=== PATIENT | female | born 1995 | race Caucasian/White ===

== ENCOUNTER 2024-02-26 12:47 | Emergency (ER) | payer OTHER ==
[2024-02-26 13:06] VITALS: BP 115/63; O2SAT 99
[2024-02-26 13:46] LABS: BASOPHILS % (AUTO) 0.1 %; EOSINOPHILS % (AUTO) 0.2 %; HCT - HEMATOCRIT 37.8 % (37.0-47.0); HGB - HEMOGLOBIN 13.1 g/dL (12.0-16.0); LYMPHOCYTES # (AUTO) 0.6 10^3/uL (1.5-3.5); LYMPHOCYTES % (AUTO) 5.3 %; MEAN CORPUSCULAR HEMOGLOBIN 30.3 pg (27.0-31.0); MEAN CORPUSCULAR HGB CONC 34.7 g/dL (32.0-36.0); MEAN CORPUSCULAR VOLUME 87.3 fL (81.0-99.0); MEAN PLATELET VOLUME 10.8 fL (7.9-10.8); MONOCYTES # (AUTO) 0.7 10^3/uL (0.0-1.0); MONOCYTES % (AUTO) 6.6 %; NEUTROPHILS % (AUTO) 87.3 %; PLT - PLATELET COUNT 209 10^3/uL (130-450); RED BLOOD COUNT 4.33 10^6/uL (4.20-5.40); RED CELL DISTRIBUTION WIDTH 13.5 % (12.0-15.0); WHITE BLOOD COUNT 10.3 x10^3/uL (4.8-10.8)
[2024-02-26 13:59] LABS: ALBUMIN 4.2 g/dL (3.2-5.5); ALBUMIN/GLOBULIN RATIO 1.8 (1.0-2.2); BILIRUBIN,TOTAL 0.6 mg/dL (0.2-1.0); CALCIUM 9.3 mg/dL (8.5-10.3); CREATININE 0.6 mg/dL (0.6-1.3); POTASSIUM 3.6 mmol/L (3.5-4.5); TOTAL PROTEIN 6.5 g/dL (6.4-8.9)
--- NOTE | 2024-02-26 15:16 | ED Physician Documentation ---
PD HPI NVD - Stated complaint Stated Complaint: N/V/D, ABD PX - Chief complaint Chief Complaint: Abd Pain - History obtained from History obtained from: Patient - History of Present Illness Timing - onset: Yesterday Timing - duration: Days (2) Timing - details: Gradual onset, Intermittant Pain level max: 1 Pain level now: 0 Associated symptoms: No: Fever Contributing factors: Sick contact. No: Recent antibiotics, Alcohol use Recently seen: Not recently seen - Additonal information Additional information: 28-year-old female 17 weeks . She states that she had an episode of nausea and vomiting yesterday. 2 episodes of diarrhea today 3 episodes of diarrhea yesterday. Concerned about dehydration. No fevers. No chills. No blood in the stool. Occasionally has cramping in her abdomen. No vaginal bleeding or discharge. No recent travel or antibiotics. Has been around other people who are sick as well. Review of Systems Constitutional: denies: Fever, Chills GI: denies: Bloody / black stool : reports: Now DESIRE (17 weeks). denies: Dysuria, Frequency, Hesitancy, Discharge, Vaginal bleeding Skin: denies: Rash Musculoskeletal: denies: Neck pain, Back pain Neurologic: denies: Headache PD PAST MEDICAL HISTORY - Past Medical History Past Medical History: No Other Past Medical History: ASD - Past Surgical History Past Surgical History: Yes Ortho: Other HEENT: Other - Allergies Allergies/Adverse Reactions: Allergies Allergy/AdvReac Type Severity Reaction Status Date / Time amoxicillin Allergy Hives Verified 02/26/24 13:02 - Social History Does the pt smoke?: No Smoking Status: Never smoker Does the pt drink ETOH?: No Does the pt have substance abuse?: No - Immunizations Immunizations are current?: Yes PD ED PE NORMAL - Vitals Vital signs reviewed: Yes - General General: Alert and oriented X 3, No acute distress - HEENT HEENT: PERRL, Moist mucous membranes - Neck Neck: Supple, no meningeal sign - Cardiac Cardiac: RRR, Strong equal pulses - Respiratory Respiratory: No respiratory distress, Clear bilaterally - Abdomen Abdomen: Soft, Non tender, Non distended - Back Back: No CVA TTP - Derm Derm: Warm and dry - Extremities Extremities: No edema - Neuro Neuro: Alert and oriented X 3 - Psych Psych: Normal mood, Normal affect Results - Vitals Vitals: Vital Signs - 24 hr 02/26/24 13:02 Temperature 36.7 C Heart Rate 110 H Respiratory 16 Rate Blood Pressure 115/63 O2 Saturation 99 - Labs Labs: Laboratory Tests 02/26/24 02/26/24 02/26/24 13:42 13:42 16:40 WBC 10.3 RBC 4.33 Hgb 13.1 Hct 37.8 MCV 87.3 MCH 30.3 MCHC 34.7 RDW 13.5 Plt Count 209 MPV 10.8 Neut # (Auto) 9.0 H Lymph # (Auto) 0.6 L Beaver # (Auto) 0.7 Eos # (Auto) 0.0 Baso # (Auto) 0.0 Absolute Nucleated RBC 0.00 Nucleated RBC % 0.0 Sodium 135 Potassium 3.6 Chloride 103 Carbon Dioxide 24 Anion Gap 8.0 BUN 7 Creatinine 0.6 Estimated GFR (MDRD) 117 Glucose 96 Calcium 9.3 Total Bilirubin 0.6 AST 20 ALT 23 Alkaline Phosphatase 48 Total Protein 6.5 Albumin 4.2 Globulin 2.3 Albumin/Globulin Ratio 1.8 Lipase 35 Urine Color YELLOW Urine Clarity HAZY Urine pH 6.0 Ur Specific [place] 1.025 Urine Protein NEGATIVE Urine Glucose (UA) NEGATIVE Urine Ketones 15 H Urine Occult Blood NEGATIVE Urine Nitrite NEGATIVE Urine Bilirubin NEGATIVE Urine Urobilinogen 0.2 (NORMAL) Ur Leukocyte Esterase SMALL H Urine RBC 0-5 Urine WBC 6-10 H Ur Squamous Epith Cells MANY Squamous H Urine Bacteria Many H Ur Microscopic Review INDICATED Urine Culture Comments NOT INDICATED PD Medical Decision Making - ED course Complexity details: reviewed results, re-evaluated patient, considered differential, d/w patient ED course: Patient is very well-appearing, nontoxic. Afebrile. Tolerating p.o. without difficulty here. No significant lab abnormalities. Urinalysis appears contaminated. Bedside ultrasound reveals an intrauterine , size consistent with dates. heart rate approximately 142 bpm. Images were shown to the patient. No diarrhea here. No vomiting here. Likely viral gastroenteritis. We will continue supportive care and have her follow-up with her doctor for further care. Abdomen remains soft, nontender nondistended on serial exam. Patient counseled regarding signs and symptoms for which I believe and urgent re-evaluation would be necessary. Patient with good understanding of and agreement to plan and is comfortable going home at this time This document was made in part using voice recognition software. While efforts are made to proofread this document, sound alike and grammatical errors may occur. Departure - Departure Disposition: 01 Home, Self Care Clinical Impression: Diarrhea Qualifiers: Diarrhea type: unspecified type Qualified Code(s): R19.7 - Diarrhea, uns pecified Condition: Good Instructions: ED Diarrhea Viral Follow-Up: Fransisca Esparza CNM, FILM DRYING MACHINE OPERATOR [Primary Care Provider] - Within 1 week Comments: Please follow-up with your OB for further care. Please return if you worsen. Make sure you are drinking plenty of fluids at home. Forms: PCP List Discharge Date/Time: 02/26/24 17:43
[2024-02-26] MEDS: SODIUM CHLORIDE 0.9% 1,000 ML IV STA (15:40)
[2024-02-26 16:56] LABS: BILIRUBIN,URINE NEGATIVE (NEGATIVE); GLUCOSE, URINE (UA) NEGATIVE (NEGATIVE); KETONES,URINE (UA) 15 mg/dL (NEGATIVE); LEUKOCYTE ESTERASE, URINE SMALL (NEGATIVE); NITRITE,URINE NEGATIVE (NEGATIVE); OCCULT BLOOD,URINE NEGATIVE (NEGATIVE); PROTEIN,URINE NEGATIVE (NEGATIVE); UROBILINOGEN,URINE 0.2 (NORMAL) E.U./dL (NORMAL)
[2024-02-26 16:57] LABS: CLARITY,URINE HAZY (CLEAR)
[2024-02-26 17:16] LABS: BACTERIA,URINE Many /HPF (None Seen); RBC,URINE 0-5 /HPF (0-5); SQUAMOUS EPITHELIAL CELL,UR MANY Squamous (<= Few)
== END 2024-02-26 17:43 | disposition home or self-care (01) ==
LOC: ED 12:47
DX: O26.892 Other specified pregnancy related conditions, second trimester (principal); R19.7 Diarrhea, unspecified; O21.9 Vomiting of pregnancy, unspecified; Z3A.17 17 weeks gestation of pregnancy
CPT/HCPCS: 36415; 80053; 81001; 81003; 83690; 85025; 87086; 99283

== ENCOUNTER 2024-03-19 10:39 | Outpatient (CLI) | payer OTHER ==
--- NOTE | 2024-03-19 13:52 | Ultrasound Report ---
PROCEDURE: OB Anatomy Scan INDICATIONS: SUPERVISION OF OUTSIDE/PRIOR DATING DATA: Last menstrual period (LMP): 10/25/2023. LMP-based estimated date of delivery (ANABEL): 10/01/2023. First dating scan (date and location): 03/19/2024. Estimated date of delivery (ANABEL) from first dating scan: 07/30/2024. The below data below was generated using the ultrasound ANABEL of 07/30/2024 TECHNIQUE: Real-time scanning was performed of the fetus, with image documentation and biometric measurements. Endovaginal scanning: Not performed. COMPARISON: None. FINDINGS: General: A single living intrauterine gestation is present. Presentation: Variable Placenta: Placental position is posterior, without previa. Amniotic fluid index: 10.7 cm, within normal limits for gestational age. heart rate: 153 beats per minute. Maternal cervical canal: 5.7 cm long; normal length is 2.5 cm or more. biometrics: Biparietal diameter: 4.5 cm, 19 weeks 4 days, 5.9 percentile Head circumference: 17.7 cm, 20 weeks 2 days, 11.9 percentile Abdominal circumference: 16.9 cm, 22 weeks 0 days, 74.5 percentile Femur length: 3.62 cm, 31 weeks 3 days, 58.3 cm Estimated gestational age from initial scan: 20 weeks 0 days Composite gestational age from present scan: 20 weeks 6 days Estimated weight and percentile: 429.2 g, 72.5 percentile Measurement variability in biometric dating: +/- 10 days from 12-20 weeks gestation, +/- 2 weeks from 20-30 weeks gestation, +/- 3 weeks at 30 weeks gestation or later. Anatomic survey: Neuro: Ventricles are normal at less than 10 mm. Cisterna magna is normal at 3-11 mm. Cerebellum i s normal in size and morphology. Nuchal skin fold: Normal at less than 6 mm between 14 and 20 weeks gestational age. Face: Nose and lips, facial profile are normal. Spine: No evidence for spina bifida. Heart: 4-chambered heart is present, with normal ventricular outflow tracts. Diaphragm: Diaphragm is intact. Stomach: Left-sided stomach is present. Kidneys: The right renal collecting system measures 4.6 mm. The left renal collecting system measures 4.2 mm. Cord: 3 vessel cord has orthotopic insertion. Bladder: Normal in size. Extremities: All 4 extremities are visualized. IMPRESSION: Single living intrauterine at 21 weeks 0 days, ANABEL of 07/30/2024. Estimated weight of 429 g, 72nd percentile. Mild bilateral pelvocaliectasis without oligohydramnios. Consider follow-up at 30-33 weeks, or at pro vider's discretion. Reviewed by: Juan Manuel Morales MD on 03/19/2024 1:51 PM PDT Approved by: Juan Manuel Morales MD on 03/19/2024 1:51 PM PDT Station ID: [id number]
== END 2024-03-19 10:40 | disposition home or self-care (01) ==
LOC: DI 10:39
PROVIDERS: ATTEND Nurse Practitioner Obstetrics & Gynecology
DX: O35.EXX0 Maternal care for other (suspected) fetal abnormality and damage, fetal genitourinary anomalies, not applicable or unspecified (principal); Z3A.21 21 weeks gestation of pregnancy; Z36.89 Encounter for other specified antenatal screening

== ENCOUNTER 2024-05-07 11:47 | Outpatient (CLI) | payer OTHER ==
[2024-05-07 13:10] LABS: HCT - HEMATOCRIT 35.6 % (37.0-47.0); HGB - HEMOGLOBIN 12.5 g/dL (12.0-16.0); MEAN CORPUSCULAR HEMOGLOBIN 30.9 pg (27.0-31.0); MEAN CORPUSCULAR HGB CONC 35.1 g/dL (32.0-36.0); MEAN CORPUSCULAR VOLUME 87.9 fL (81.0-99.0); MEAN PLATELET VOLUME 11.2 fL (7.9-10.8); RED BLOOD COUNT 4.05 10^6/uL (4.20-5.40); RED CELL DISTRIBUTION WIDTH 13.7 % (12.0-15.0); WHITE BLOOD COUNT 11.6 x10^3/uL (4.8-10.8)
== END 2024-05-07 11:48 | disposition home or self-care (01) ==
LOC: LAB 11:47
PROVIDERS: ATTEND Nurse Practitioner Obstetrics & Gynecology
DX: Z36.9 Encounter for antenatal screening, unspecified (principal)
CPT/HCPCS: 36415; 82950; 85027

== ENCOUNTER 2024-07-24 06:06 | Inpatient (IN) ==
[2024-07-24] MEDS ORDERED: LACTATED RINGERS 1,000 ML IV PRN (07:08)
[2024-07-24] MEDS ORDERED: NIFEdipine 10 MG CAPSULE PO PRN (07:08)
[2024-07-24] MEDS ORDERED: miSOPROStoL 200 MCG TABLET BC PRN (07:08)
[2024-07-24] MEDS ORDERED: fentaNYL 100 MCG/2 ML VIAL IVP PRN (07:08)
[2024-07-24] MEDS ORDERED: LABETALOL 20 MG/4 ML SYRINGE IVP PRN ×3 (07:08)
[2024-07-24] MEDS ORDERED: TRANEXAMIC ACID IN NACL 1,000 MG/100 ML BAG IV PRN (07:08)
[2024-07-24] MEDS ORDERED: hydrALAZINE INJ 20 MG/ML VIAL IVP PRN (07:08)
[2024-07-24] MEDS ORDERED: METHYLERGONOVINE 0.2 MG/ML VIAL IM PRN (07:08)
[2024-07-24] MEDS ORDERED: OXYTOCIN 10 UNIT/ML VIAL IM PRN (07:08)
[2024-07-24] MEDS ORDERED: miSOPROStoL 200 MCG TABLET PR PRN (07:08)
[2024-07-24] MEDS ORDERED: SODIUM CHLORIDE FLUSH 0.9% 10 ML SYRINGE IVP PRN (07:08)
[2024-07-24] MEDS ORDERED: lidocaine 1% 20 ML MDV ID PRN (07:08)
[2024-07-24] MEDS ORDERED: TERBUTALINE 1 MG/ML VIAL SUBQ PRN (07:08)
[2024-07-24] MEDS: miSOPROStoL 100 MCG TABLET BC SCH (07:25)
--- NOTE | 2024-07-24 10:32 | HISTORY & PHYSICAL EXAMINATION ---
Admit History Visit Reason Visit Reason: Other : 2 Parity: 1 Care: positive [facility] Risk/History: positive None Complications This : positive None Smoking Status: Never smoker HPI Current : Vital Signs Respiratory Rate 18 07/24/24 06:10 Respiratory Rate 18 07/24/24 06:10 Meds/Allgy Home Medications Ambulatory Orders Medication Instructions Recorded Confirmed vitamins no.159-iron tab PO 06/18/24 07/17/24 fumarate 28 mg-folic acid 800 mcg tablet ( Vitamin) Allergies Allergies Allergy/AdvReac Type Severity Reaction Status Date / Time amoxicillin Allergy Hives Verified 07/09/24 13:48 [facility] Surgical History Surgical History (Updated 06/18/24 @ 10:31 by Shabana Taylor MA) H/O sinus surgery Social History Social History (Updated 06/18/24 @ 10:32 by Shabana Taylor MA) Smoking Status: Never smoker Do you dip or chew tobacco?: No Do you feel safe in your home environment?: Yes Suffered physical, verbal, emotional, or financial abuse?: No Physical Abdominal Exam Vital Signs: Resp 18 07/24/24 06:10 Plan for Labor Plan For Labor I expect patient to be DC'd or transferred within 96 hours.: Yes Plan for Labor: HPI: This 29yo @ 39.0wks gestation by LMP c/w 8.0wks gestation who presents to [facility] for elective IOL. Upon arrival SVE was deferred however yesterday evening in [facility] triage SVE was 1/50/-3 and vertex and intact membranes. FHR baseline 140s, moderate variability, + accels, no decels. No contractions appreciated via tocometry. She had mildly elevated blood pressure in triage last evening and she requested IOL secondarily. She denies CHAPPELL, visual disturbances, RUQ or epigastric pain. She has not felt contractions and reports +FM. She has been a patient of [facility] since her transfer of care from [facility] at 29wks gestation. She has had consistent care and her has remained uncomplicated. She is supported by her today. She will be admitted to [facility] for pre-induction cervical ripening. 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 SAB x 0. Last pap - unsure. Denies hx of gonorrhea, chlamydia, genital herpes, oral herpes or any other STI. Sexual partner does NOT have HSV (oral or genital). Medical Hx: congenital heart defect/atrial septal defect - Cardiology referral in last was WNL. Surgical Hx: Left hand surgery 1997; atrial septal defect repair - 2012; naso septoplasty 09/2022 Social Hx: Monogamous with male partner. Stopped drinking alochol due to . Denies current tobacco or nicotine use. Denies marijuana or other recreational drugs. Reports she is safe in current relationship. Family Hx: Son was born with epispadias that required surgical correction; diabetes - MGM; epilepsy/seizures - brother; HTN, Heart disease - MGF; Breast cancer - PGM; Prostate cancer - PGF; Anxiety/depression -Brother; Autism - brother. Denies family hx of congential anomalies, cystic fibrosis or chromosomal abnormalities. Allergies: Amoxicillin - hives Medications: PNV, Claritin once daily PO course: LMP: 10/25/2023 ANABEL by LMP: 07/31/2024 Initial U/S: @ 8.0wks c/w LMP dating FINAL ANABEL: 07/31/2024 Atrial Septal Defect with repair in 2012. Cardiology referral WNL Pre- Weight: 205 BMI: 34.5 Blood type B+ Antibody neg CBC: PLT 312 HCT 40.6 HGB 13.6 RUB: immune VZV: immune HBsAg: NR HepC: NR RPR/AB-EIA: NR HIV: NR HgbA1C: 5.1 PAP: needs GC/CT: neg HSV: denies in self and partner Genetic testing: neg Covid: x2 Flu: 05/18 FAS: 03/19/24- bilateral pelviectasis without oligohydramnios. F/u @ 32-34wks Placenta: posterior w/o previa Cord: 3vc SHANE:10.7cm wnl EFW: 429.2g 72.5% 50gm OGCT: TDAP:05/18 Breast Pump: Rx given RSV 06/18/2024 3rd trimester H/H 12.5/35.6 PLT 227 GBS:collected 07/09- PCN allergy POSITIVE Delivery plan: Open minded and "wait and see" approach to labor and delivery processes. States she will likely get an epidural. Okay with all baby meds. Desires - struggled last baby. MOD: Anticipate Physical exam: Normocephalic, atraumatic Heart RRR w/o M/G/R Lungs CTAB Abdomen gravid, soft, nontender FHR baseline 140s, moderate variability, + accels, no decels No contractions appreciated via tocometry SVE deferred Bilateral LE's trace edema. Mood is good Assessment: 29yo @ 39.0wks gestation by LMP c/w 8.0wk U/S GBS POSITIVE FHR Category I Plan: Admit to [facility] for pre-induction cervical ripening with misoprostol. Continuous monitoring. Jacuzzi PRN. Nitrous oxide PRN. Epidural per maternal request. Anticipate .
[2024-07-24] MEDS: ceFAZolin (2G) 2 GM in SODIUM CHLORIDE 0.9% MINIBAG 100 ML IV ONE (11:24)
[2024-07-24] MEDS: ceFAZolin 1 GM in SODIUM CHLORIDE 0.9% MINIBAG 100 ML IV SCH (15:34)
--- NOTE | 2024-07-24 18:12 | PROVIDER PROGRESS NOTE ---
HPI Chief Complaint: Decreased movement Current : Vital Signs Respiratory Rate 18 07/24/24 06:10 Respiratory Rate 18 07/24/24 06:10 Procedures OB Procedure Performed: NST Diagnosis/Indication for NST: Decreased movement NST Procedure: NST reactive. FHR baseline 140s, moderate variability, + accels, no decels No contractions appreciated via tocometry Service Date of procedure: 07/23/24 Plan Plan: Sandra presents today with her with c/o decreased movement throughout the day today. She states she has felt some movements but not nearly as much as usual. She denies vaginal bleeding, leakage of fluid or contractions. She has eaten regularly and drank a sugary drink in attempt to wake her up but has been unable to successfully do so. Upon arrival BP initially mildly elevated. She denies CHAPPELL, visual disturbances, RUQ or epigastric pain. No edema to LE's bilaterally. NST reactive. FHR baseline 140s, moderate variablity, + accels, no decels No contractions appreciated via tocometry CMP WNL CBC WNL Pr/cr ratio 0.1 Pt released home with precautions. She desires elective IOL and [facility] is able to facilitate tomorrow morning. Carefully reviewed warning s/sx of preelcampsia with pt and she verbalized understanding and agrees to above plan. She denies further questions or concerns at this time. FINAL DIAGNOSIS: Decreased movement
--- NOTE | 2024-07-24 18:53 | PROVIDER PROGRESS NOTE ---
Labor Progress Note Labor Progress Note Labor Progress Note/Additional Text: S: Breathing through contractions but coping well. Starting to feel increasingly uncomfortable and particularly so after SROM which occurred 1 hr ago. She is requesting an epidural for pain management at this time. Her is suppor tive at the bedside. O: FHR baseline 150s, moderate variability, + accels, no decels Contractions palpate moderate every 2-3 minutes with soft resting tone SVE 1-2/50/-3, vertex SROM occurred at 1745 and noted to be a moderate amount of clear fluid S/p 3 doses of BC misoprostol for pre-induction cervical ripening A: 29yo @ 39.0wks gestation Induction of labor GBS positive FHR Category I P: Anesthesia notified for placement of epidural per pt request Continuous monitoring. Repeat SVE in 4 hours or sooner PRN. Discussed initiation of pitocin at that time as needed and pt agrees. She denies further questions or concerns at this time.
[2024-07-24] MEDS ORDERED: LIDOCAINE 2%-EPI 1:100000 20 ML MDV ONE (19:02)
[2024-07-24] MEDS ORDERED: ROPIVACAINE 0.2% 200 MG/100 ML BAG EP ONE (19:02)
[2024-07-24] MEDS ORDERED: lidocaine 1% 20 ML MDV ONE (19:30)
--- NOTE | 2024-07-24 20:24 | ANESTHESIA PROCEDURE NOTE ---
Pre-Anesthesia VS, & Labs Diagnosis Surgical Diagnosis:: 39 weeks for elective induction Procedure Procedure: placement of labor epidural Vitals Vital Signs: Resp 18 07/24/24 06:10 Height (in): 5 ft 4 in Weight (kg): 99 kg Body Mass Index: 37.4 BMI Classification: Obese NPO Last Fluid Intake: currently clears Is Patient ?: Yes Lab Results Current Lab Results: Laboratory Tests 07/24/24 08:52: Blood Type Recheck B POSITIVE 07/24/24 08:18: Blood Type B POSITIVE, Antibody Screen NEGATIVE Lab results reviewed: Yes Meds/Allgy Home Medications Ambulatory Orders Medication Instructions Recorded Confirmed vitamins no.159-iron tab PO 06/18/24 07/17/24 fumarate 28 mg-folic acid 800 mcg tablet ( Vitamin) Allergies Allergies Allergy/AdvReac Type Severity Reaction Status Date / Time amoxicillin Allergy Hives Verified 07/09/24 13:48 PFSH Surgical History Surgical History H/O sinus surgery Social History Social History Smoking Status: Never smoker Do you dip or chew tobacco?: No Do you feel safe in your home environment?: Yes Suffered physical, verbal, emotional, or financial abuse?: No POLST Patient has POLST: No Anesthesia Exam (Expanded) Exam General: Alert and Mild distress Dental: WNL Mouth Openin Fingerbreadth Neck Mobility: Normal Mallampati classification: II Thyromental Distance: 4-6 cm Respiratory: Lungs clear Cardiovascular: Regular rate (history of atrial septal defefect repair in 2012. No limitations in activity since then, tolerated labor epidural well with first child; she is normally very active, sees cardiology for routine follow ups, with no limitations) Plan Problem List (1) History of atrial septal defect repair: (2) Supervision of normal : Qualifiers: Normal : other normal Trimester: third trimester Qualified Code(s): Z34.83 - Encounter for supervision of other normal , third trimester Plan Anesthesia Type: Epidural Consent for Procedure(s) Verified and Reviewed: Yes Code Status: Attempt Resuscitation ASA Classification ASA classification: 2-Mild systemic disease Is this case an emergency?: No
[2024-07-24] MEDS ORDERED: ePHEDrine 50 MG/ML VIAL IVP PRN (20:29)
[2024-07-24] MEDS ORDERED: ROPIVACAINE 0.2% 200 MG/100 ML BAG EP PRN (20:29)
[2024-07-24] MEDS ORDERED: METOCLOPRAMIDE 10 MG/2 ML VIAL IVP PRN (20:29)
[2024-07-24] MEDS ORDERED: NALOXONE 0.4 MG/ML VIAL IVP PRN (20:29)
[2024-07-24] MEDS ORDERED: NALBUPHINE 10 MG/ML AMP IVP PRN (20:29)
[2024-07-24] MEDS ORDERED: ONDANSETRON 4 MG/2 ML VIAL IVP PRN (20:29)
[2024-07-24] MEDS ORDERED: LACTATED RINGERS 500 ML IV ONE (20:29)
[2024-07-24] MEDS ORDERED: diphenhydrAMINE INJ 50 MG/ML VIAL IVP PRN (20:29)
--- NOTE | 2024-07-24 20:35 | MISCELLANEOUS PROVIDER NOTE ---
Miscellaneous Provider Note - Note: Placement of the patients labor epidural was somewhat difficult due to positi oning and body habitus, on the first attempt with a 17 g tuohy at L2-3, , there was AMPARO about 6cm, with +csf through the needle;it was removed, and again attempted at L3-4, Amparo was at about 5 cm, -csf, -heme, -paresthesia, cath was easily threaded, and left at 11 cm/skin. patient and nurse were advised to be aware of signs of PDPHA after delivery and to please call anesthesia, with any sysmptoms, questions, or concerns.
[2024-07-24] MEDS: LACTATED RINGERS 1,000 ML IV SCH (21:37)
[2024-07-24] MEDS: OXYTOCIN/SODIUM CHLORIDE 500 ML IV SCH (22:45)
[2024-07-25] MEDS: OXYTOCIN/SODIUM CHLORIDE 500 ML IV PRN (01:08)
[2024-07-25] MEDS ORDERED: SIMETHICONE CHEW 80 MG TABLET PO PRN (02:00)
[2024-07-25] MEDS ORDERED: OXYTOCIN/SODIUM CHLORIDE 500 ML IV PRN (02:00)
[2024-07-25] MEDS ORDERED: WITCH HAZEL/GLYCERIN 1 PAD TOP PRN (02:00)
[2024-07-25] MEDS ORDERED: HYDROCORTISONE 1% CREAM 28 GM TUBE TOP PRN (02:00)
--- NOTE | 2024-07-25 02:05 | DELIVERY NOTE ---
Delivery Note Delivery Outcome Delivery Date: 07/25/24 Delivery Time: 01:02 Delivery Comments (Free Text/Narrative) Delivery Comments (Free Text/Narrative): Labor: This 29yo @ 39.1wks gestation by LMP c/w 8.0wk U/S presented to [facility] on 07/24/2024 for elective IOL. Cervix was 1/50/-3 and vertex. She received 3 doses of 50mcg BC misoprostol for preinduction cervical ripening. She was noted to be GBS positive and received adequate GBS prophylaxis per protocol. FHR demonstrated Category I pattern throughout labor. Normal labor course. SROM occurred @ 1744 and was noted to be a moderate amount of clear fluid. Epidural placed per maternal request. Pitocin initiated for augmentation of labor for a maximum infusion rate of 6mU/mL. She progressed to c/c/+2 at 0040 with onset of active pushing at 0059.. : Normal SVB of viable female on 07/25/2024 @ 0102. Nucal cord x 1 was reduced. The was placed on maternal abdomen, stimulated, dried, and placed skin to skin. 's were 9/9 at 1 and 5 min respectively. Pitocin administered via IV for hemostasis. The umbilical cord was allowed to stop pulsating at which time it was doubly clamped by CNM and cut by FOB. Cord blood was obtained. 3VC. Fundal massage and gentle cord traction applied for active management of the third stage. Placenta delivered spontaneously and intact at 0108. QBL 225mL. Fourth stage: Uterine fundus firm and there is no excessive bleeding. The perineum, vagina, and cervix were inspected and found to have a 1st degree perineal laceration which was repaired using a 2-[address]-1 needle, in standard fashion and under sterile conditions. Vaginal examination following repair was performed. Tissues well approximated. initiated. Both mother and baby were left in stable condition.
--- NOTE | 2024-07-25 05:42 | MISCELLANEOUS PROVIDER NOTE ---
Miscellaneous Provider Note - Note: Patient delivered at 0102 this morning. Per her nurse, at 0530, the epidural worked well for her delivery, and she was comfortable. The epidural catheter has been removed, and the patient has been sitting up in bed and has been up to the bathroom several times, without complaints of back pain or PDPH(post dural puncture headache) smptoms. The patient and nurse have been advised to be aware of any signs or symptoms, and to please call anesthesia as needed with questions or concerns.
[2024-07-25] MEDS: ACETAMINOPHEN 500 MG TABLET PO PRN (06:02)
[2024-07-25] MEDS: IBUPROFEN 800 MG TABLET PO PRN (08:10)
[2024-07-25] MEDS: DOCUSATE SODIUM 100 MG CAPSULE PO SCH (08:13)
--- NOTE | 2024-07-25 10:50 | PHARMACY PROGRESS NOTE ---
Best Possible Medication History Admit Date and Time: 07/24/24 0718 Home Medications Medication Instructions Recorded Confirmed Type vitamins no.159-iron 1 tab PO DAILY 06/18/24 07/25/24 History fumarate 28 mg-folic acid 800 mcg tablet ( Vitamin) famotidine 20 mg tablet (Acid 20 mg PO DAILY PRN heartburn 07/25/24 07/25/24 History Glassware Verifier (famotidine)) Processed by: Pharmacy Medications reviewed in ED?: No Medication History completed: Yes Patient Interview: Completed Secondary Source(s): Insurance records [facility] Statement: As the person ultimately responsible for medication therapy, providers are able to order a medication from an existing home medication list in [facility] via the "Reconcile Routine" prior to Confirmation of that medication by sales and support center agent. Such practice is discouraged except when the physician, in their clinical judgment, deems that a medical need exists for a medication without regard to pr evious use.
[2024-07-25] MEDS: FAMOTIDINE 20 MG TABLET PO PRN (20:20)
[2024-07-26 09:49] VITALS: O2SAT 97
--- NOTE | 2024-07-26 10:27 | Discharge Summary ---
Discharge Summary HOSPITAL COURSE Hospital Course: Date of Admission: 07/24/2024 Date of Discharge: 07/26/2024 Diagnosis on Admission: 1. 29yo @ 39.0wks gestation by LMP c/w 8.0wk U/S 2. GBS POSITIVE 3. FHR Category I Diagnosis on Discharge: 1. 29yo PPD#1 s/p TSVD viable female 2. 3. Normal recovery Brief History: She is a patient of [facility] who presented on 07/24/2024 for elective induction of labor at 39.0wks gestation. Cervix was 1/50/-3 and vertex with intact membranes. She received 3 doses of BC misoprostol for effective pre- induction cervical ripening. Epidural was placed per maternal request. SROM occurred and was noted to be a moderate amount of clear fluid. She spontaneously progressed to deliver a viable female infant on 07/25/2024 @ 0040. Perineum was noted to have a 1st degree laceration which was repaired using a 3-[address]-1 needle in standard fashion and under sterile conditions. Apgars were 9/9 at 1 and 5 minutes respectively. QBL 225 mL. She has been doing well in her course. She is ambulating and to lerating a regular diet. She is urinating without difficulty and her lochia is normal. Her pain is well controlled with oral medications. She will be discharged home today on day #1 with instructions to continue taking her vitamin while and to continue taking Ibuprofen and Tylenol over the counter as needed for pain management. She intends to follow up with myself at [facility] in 1 week for routine visit or sooner if needed. She has been given precautions to call if she has any worsening fevers, chills, abdominal pain, increased vaginal bleeding or foul smelling vaginal lochia. Physical Exam: Normocephalic, atraumatic. Heart RRR w/o M/G/R, lungs CTAB, abdomen soft and nontender with fundus firm at U, perineum intact, light lochia rubra, bilateral LE's no edema. Mood is good. ALLERGIES Allergies Allergy/AdvReac Type Severity Reaction Status Date / Time amoxicillin Allergy Hives Verified 07/09/24 13:48 MEDICATIONS Ambulatory Orders Medication Instructions Recorded Confirmed vitamins no.159-iron 1 tab PO DAILY 06/18/24 07/25/24 fumarate 28 mg-folic acid 800 mcg tablet ( Vitamin) famotidine 20 mg tablet (Acid 20 mg PO DAILY PRN heartburn 07/25/24 07/25/24 Night Shift (famotidine)) Discharge Plan Discharge Patient Disposition: Home, Self Care Prescriptions: Continued famotidine [Acid Night Shift (famotidine)] 20 mg tablet 20 mg PO DAILY PRN (Reason: heartburn) Vitamin 28 mg iron- 800 mcg tablet 1 tab PO DAILY Activity Restrictions: Activity as Tolerated Diet: Regular Print Language: Macedonian Patient Instructions: Vaginal After, Self Care Follow-up Care: Fransisca Esparza CNM, CALL OR CONTACT CENTRE TEAM LEADER [Provider Admit Priv/Credential] -
--- NOTE | 2024-07-26 11:39 | Labor Flowsheet ---
Labor Flowsheet Datetime Report Generated by CPN: 07/26/2024 11:39 Datetime: 07/26/2024 09:43 VITAL SIGNS NBP Sys/Laureen/Mean (mmHg): 132 : 81 : 91 Pulse: 92 Datetime: 07/25/2024 17:34 SpO2 (%): 99 Datetime: 07/25/2024 03:15 Stage of : Recovery Respirations: 18 PAIN Pain Scale: 1 Pain Presence: Intermittent Pain Type: Cramping Pain Location: Abdomen Pain Relief Measures: Comfort Measures Pain Assessment Comments: pt refusing pain meds at this time Datetime: 07/25/2024 01:09 LaborFlag: Labor Datetime: 07/25/2024 01:00 UTERINE ACTIVITY Monitor Mode: External Frequency (min): 2-3 Quality: Strong Duration (sec): 60-90 Pattern: Normal: <= 5 Contractions in 10 Minutes Resting Tone (Palpate): Relaxed ASSESSMENT A Monitor Mode: External US FHR Baseline Rate : 140 Variability: Moderate 6-25 bpm Accelerations: 15X15 Decelerations: None Category: Category I Datetime: 07/25/2024 00:59 STAGE 2 Pushing: Coached on Pushing; Urge to Push Pushing Position: Pushing with Contractions; Pushing Lithotomy Pushing Progress: Descent with Pushing Datetime: 07/25/2024 00:58 Comments: provider at bedside Datetime: 07/25/2024 00:45 Monitor Interventions for UA: [place] Adjusted Datetime: 07/25/2024 00:43 I/O Interventions: Ledezma Discontinued Datetime: 07/25/2024 00:40 VAGINAL EXAM Dilatation (cm): 10.0 Effacement (%): 100 Station: 2 Exam by: manisha richardson rn Datetime: 07/25/2024 00:30 Pitocin Checklist: At Least 1 Acceleration of 15 bpm x 15 Seconds in 30 Minutes or Adequate Variabi lity; No More than 1 Late Deceleration Occurred in Past 30 Minutes; No More than 2 Variable Decelerat ions > 60 Seconds in Duration and decreasing >60 bpm in 30 minutes; No More than 5 Uterine Contractio ns in 10 Minutes for any 20 Minute Interval; Uterus Palpates Soft between Contractions FHR Baseline Changes: No Baseline Change Datetime: 07/25/2024 00:16 Pain Coping: Sleeping Datetime: 07/24/2024 23:59 PATIENT CARE Patient Position/Activity: Left Tilt Datetime: 07/24/2024 23:45 Monitor Interventions for FHR: Ultrasound Adjusted Datetime: 07/24/2024 23:15 Temperature (C): 36.9 Datetime: 07/24/2024 22:37 Patient Care Comments: with peanut ball Datetime: 07/24/2024 22:32 Vaginal Bleeding: None Cervix, Consistency: Moderate Cervix, Position: Midposition Datetime: 07/24/2024 20:30 Temperature Route: Oral Datetime: 07/24/2024 19:52 Epidural Procedure Other: Pump Started Datetime: 07/24/2024 19:46 Epidural Positioning: Side Lying Anesthesia Comments: left tilt Datetime: 07/24/2024 19:41 Epidural Procedure: Loading Dose Datetime: 07/24/2024 19:10 Comfort Measures: Breathing/Relaxation; Family Support Datetime: 07/24/2024 19:04 ANESTHESIA Anesthesia Plans: Epidural Datetime: 07/24/2024 18:32 COMMUNICATION Communication: Call/Page Placed to Provider Communication Comments: requested debit agent to come in for epidural Datetime: 07/24/2024 17:44 Membranes Ruptured Date/Time: 07/24/2024 17:44 Membranes Rupture Method: Spontaneous Amniotic Fluid Color: Clear Amniotic Fluid Amount: Small Amniotic Fluid Odor: Normal Datetime: 07/24/2024 15:34 MEDICATIONS Antibiotics: Ancef IV (Gm) @ 1 Cervical Ripening Agents: Cytotec @ Datetime: 07/24/2024 08:44 Provider Reviewed Strip: Yes Datetime: 07/24/2024 07:25 Medication Comments: buccal Datetime: 07/24/2024 06:36 Contraction Comments: irregular irritablity Membrane Status: Intact MATERNAL ASSESSMENT Level of Consciousness: Alert DTR's/Clonus: DTRs Absent; No Clonus Headache: Denies Nausea/Vomiting: Denies RUQ Epigastric Pain: Denies TEACHING Instructional Method: Verbal Plan of Care: Plan of Care Discussed Unit Routine: Norman to Room; Call Su; Bed; Visiting Policy; Waiting Areas
== END 2024-07-26 11:38 | disposition home or self-care (01) | DRG 807 ==
LOC: WFO 06:06 → FBP 06:09
PROVIDERS: ATTEND Nurse Practitioner Obstetrics & Gynecology
DX: O99.214 Obesity complicating childbirth; O99.891 Other specified diseases and conditions complicating pregnancy; Z37.0 Single live birth; R03.0 Elevated blood-pressure reading, without diagnosis of hypertension; Z3A.39 39 weeks gestation of pregnancy; O69.81X0 Labor and delivery complicated by cord around neck, without compression, not applicable or unspecified; O70.0 First degree perineal laceration during delivery; O99.824 Streptococcus B carrier state complicating childbirth